=== PATIENT | female | born 1955 | race Caucasian/White ===

== ENCOUNTER 2016-10-21 11:54 | Inpatient (IN) | payer OTHER ==
[~2016-10-21] VITALS: Ht 165.1 cm; Wt 80.3 kg
--- NOTE | 2016-10-21 11:55 | NUR ---
PT W/C TO ED LOBBY BY FAMILY REPORTING SHE FAINTED, PT APPEARS FLACCID IN W/C, USED AMMONIA INHALANT WITH LITTLE RESPONSE, TRIAGED AND MOVED TO T1
--- NOTE | 2016-10-21 11:59 | NUR ---
PT TO ROOM T1 VIA WC, PT APPEARS LETHARGIC BUT IS ABLE TO STAND WITH ASSISTANCE ONTO GURNEY.
--- NOTE | 2016-10-21 12:02 | NUR ---
DR MCKNIGHT AT BEDSIDE FOR MD [id number].
--- NOTE | 2016-10-21 12:02 | NUR ---
EKG IN PROGRESS BY TONY HAYDEN.
--- NOTE | 2016-10-21 12:23 | NUR ---
PT NOTED TO BE MORE VERBAL IN COMPARISION TO WHEN PT 1ST ARRIVED TO . PT ABLE TO STATE FIRST & LAST NAME WITH CLEAR SPEECH AND NO DIFFICULTY. PT AAOX4.
--- NOTE | 2016-10-21 12:27 | NUR ---
REVENUE CYCLE ANALYST AT BEDSIDE.
--- NOTE | 2016-10-21 12:28 | NUR ---
PT GIVEN MED PER DR MCKNIGHT ORDERS. PT EDUCATED ON MEDS AND VERBALIZED UNDERSTANDING OF TEACHING. PT DENIES ANY ALLERGIES TO MEDS. PT IN BED WITH HOB @ 90 DEGREES FOR PO MED. NO DIFFICULTY SWALLOWING NOTED.
--- NOTE | 2016-10-21 12:29 | NUR ---
PT PICKED UP BY CT FOR TESTING VIA RBRUNO. NO DISTRESS NOTED AT THIS TIME.
--- NOTE | 2016-10-21 12:30 | NUR ---
PT INFORMED ABOUT NEED FOR URINE SAMPLE. PT STATES WILL PROVIDE SAMPLE SARAH.
--- NOTE | 2016-10-21 12:37 | NUR ---
PT BROUGHT BACK TO VIA GURENE FROM CT. NO DISTRESS NOTED AT THIS TIME
[2016-10-21 12:59] LABS: BASOPHIL % 0.3 % (0-2); PLATELET COUNT 440 x10^3mcL (130-400); RED CELL DISTRIBUTION WIDTH 13.3 % (11.5-14.5)
[2016-10-21 13:15] LABS: CALCIUM 9.4 mg/dL (8.5-10.1); CARBON DIOXIDE 28.2 mmol/L (21-32); CHLORIDE SERUM 107 mmol/L (98-107); CREATININE SERUM 0.7 mg/dL (0.6-1.0); GFR1 > 60 mL/min; GLUCOSE SERUM 103 mg/dL (74-106); POTASSIUM SERUM 3.5 mmol/L (3.5-5.1); SODIUM SERUM 143 mmol/L (136-145)
[2016-10-21 13:26] LABS: ALBUMIN 4.1 g/dL (3.4-5.0); ALKALINE PHOSPHATASE 120 U/L (46-116); ALT/SGPT 42 U/L (14-59); AST/SGOT 23 U/L (15-37); BILIRUBIN TOTAL 0.32 mg/dL (0.20-1.00); T4(THYROXINE) 8.5 ug/dL (4.7-13.3)
[2016-10-21 13:29] LABS: CHOLESTEROL 264 mg/dL (<200); TOTAL PROTEIN, SERUM 8.5 g/dL (6.4-8.2)
[2016-10-21 13:45] LABS: AMPHETAMINE QUAL UR NONE DETECTED (NEG <=1000)
--- NOTE | 2016-10-21 13:53 | NUR ---
PT AMBULATED WITH SLOW STEADY GAIT, PT REPORTS FEELING DIZZY UPON RETURNING TO ROOM AND PTS FACE APPEARS SLIGHTLY PALE. PT PLACED BACK ON CM. DR MCKNIGHT AWARE. PTS DAUGHTER AT BEDSIDE WITH PT.
--- NOTE | 2016-10-21 14:05 | NUR ---
LUNCH BREAK REPORT GIVEN TO MARIO MOORE TO CONTINUE CARE.
--- NOTE | 2016-10-21 14:45 | NUR ---
PT IN BED WITH HOB @ 45 DEGREES. PT SLEEPING BUT EASILY AROUSABLE. PT STATES "FEELING BETTER". NO DISTRESS NOTED AT THIS TIME. CALL LIGHT PLACED WITHIN REACH. COMFORT MEASURES IN PLACE.
--- NOTE | 2016-10-21 16:09 | NUR ---
ADMISSION REPORT GIVEN TO MARIO LUNA AT EXT [id number] TO CONTINUE CARE.
--- NOTE | 2016-10-21 16:14 | NUR ---
PT MEDICATED WITH ASA PO PER ORDERS.
--- NOTE | 2016-10-21 16:23 | NUR ---
RECEIVED PT FROM ED [facility]IA [employer] [facility], CAME IN DUE TO SYNCOPE X2 EPISODES. AAOX4. NO C/O MILD DIZZINESS. SPEECH IS CLEAR. NO FACIAL DROOP. HAND TUBE FILLER ARE EQUAL. NO SOB NOTED. DENIES CHEST PAIN/PRESSURE, NSR ON THE MONITOR. C/O MILD NAUSEA. DENIES ABDOMINAL PAIN. FAMILY AT BEDSIDE. SIDE RAILS UPX2. CALL LIGHT ON REACH. ENDORSED
[2016-10-21 16:27] VITALS: BP 147/70
[2016-10-21 16:37] VITALS: BP 147/70
[2016-10-21 16:40] LABS: UA SPECIFIC GRAVITY <=1.005 (1.005-1.035); microscopic required? YES; urine erythrocyte 1+ (NEGATIVE)
[2016-10-21 16:43] VITALS: Ht 165.1 cm; Wt 80.3 kg
--- NOTE | 2016-10-21 16:49 | NUR ---
RESUME CARE OF PATIENT. NO DISTRESS NOTED, DENIES PAIN. REPOST SOME DIZZINESS. MINIMAL ASSIST TO BATHROOM AND BACK IN BED, TOLERATED WELL
[2016-10-21 17:02] LABS: T3 TOTAL 1.17 ng/mL
[2016-10-21 17:09] LABS: FREE T4 0.86 ng/dL (0.76-1.46); FREE THYROXINE INDEX 2.7 ug/dL (1.4-4.5); T4(THYROXINE) 8.5 ug/dL (4.7-13.3)
--- NOTE | 2016-10-21 18:40 | NUR ---
FAMILY AT BEDSIDE. TOLERATED DINNER WELL, REPORTS NO NAUSEA AND SLIGHT DIZZINESS. NO DISTRESS, NOTED WILL ENDORSE TO NIGHT NURSE.
--- NOTE | 2016-10-21 19:05 | NUR ---
NURSING CO-SIGN THE DOCUMENTATION ENTERED BY THE RN CHAUNCEY HAS BEEN REVIEWED. REVIEWED/CO-SIGNED BY: Bette Fragoso DOCUMENTATION DONE BY:CHERYL SIMMONS
--- NOTE | 2016-10-21 19:59 | NUR ---
AAO X 4. SPEECH CLEAR AND APPROPRIATE. STATED HAVING SLIGHT DIZZINESS. ASSISTED TO RESTROOM BY FARRAH REA FOR SAFETY. GAIT STEADY. BREATHING EVEN AND UNLABORED ON ROOM AIR. IVF OF NS AT 140ML/HR.
--- NOTE | 2016-10-21 22:57 | NUR ---
EYES CLOSED, BREATHING EVEN AND UNLABORED ON ROOM AIR. CALL LIGHT WITHIN EASY REACH.
[2016-10-22 05:28] VITALS: BP 115/60
--- NOTE | 2016-10-22 06:56 | NUR ---
AWAKE AND ALERT, IN NO ACUTE DISTRESS DURING SHIFT.
--- NOTE | 2016-10-22 07:10 | NUR ---
AAO X4,DENIES ANY PAIN/DISCOMFORT.LUNGS CLEAR.ON SR ON THE MONITOR.IVF NS GOING AT 140 ML/HR INFUSING WELL.CALL LIGHT WITHIN REACH.INSTRUCTED TO CALL FOR ANY PAIN/DISCOMFORT.WILL CONTINUE TO MONITOR PT.
--- NOTE | 2016-10-22 07:10 | NUR ---
DENIES HAVING DIZZINESS. ENDORSED TO NURSE FAISAL
[2016-10-22 07:17] LABS: CALCIUM 8.2 mg/dL (8.5-10.1); CARBON DIOXIDE 26.9 mmol/L (21-32); CHLORIDE SERUM 110 mmol/L (98-107); CREATININE SERUM 0.7 mg/dL (0.6-1.0); GFR1 > 60 mL/min; GLUCOSE SERUM 101 mg/dL (74-106); MAGNESIUM 2.2 mg/dL (1.8-2.4); POTASSIUM SERUM 3.8 mmol/L (3.5-5.1); SODIUM SERUM 140 mmol/L (136-145)
[2016-10-22 07:24] LABS: BASOPHIL % 0.6 % (0-2); PLATELET COUNT 370 x10^3mcL (130-400); RED CELL DISTRIBUTION WIDTH 13.5 % (11.5-14.5)
--- NOTE | 2016-10-22 08:19 | NUR ---
AND MEDICINE TEAM AT BEDSIDE.INFORMED PT ABOUT THE PLAN OF CARE. PT WILL STAY TODAY.
[2016-10-22 09:46] VITALS: BP 120/54
[2016-10-22 12:20] VITALS: BP 122/61
--- NOTE | 2016-10-22 15:00 | NUR ---
NO C/O DIZZINESS.PT COMFORTABLE.
[2016-10-22 16:29] VITALS: BP 108/57
--- NOTE | 2016-10-22 18:14 | NUR ---
NO SIGNIFICANT CHANGE NOTED.WILL ENDORSE TO NEXT SHIFT.
--- NOTE | 2016-10-22 19:47 | NUR ---
PT. AWAKE, ALERT, ORIENTED X4. DENIES HEADACHE BUT C/O DIZZINESS. BREATH SOUNDS CLEAR THROUGHOUT LUNG FIELD, RESP. EVEN, UNLABORED. NO SOB NOTED. NSR ON MONITOR, DENIES CHESTPAIN OR DISCOMFORT. NO EDEMA NOTED TO EXTREMITIES. PEDAL PULSES STRONG TERI. ABD. SOFT AND ROUND, BOWEL SOUNDS ACTIVE. DENIES ABD. PAIN, DENIES NAUSEA. IVF INFUSING WELL TO RAC, 140CC/HR. FAMILY AT BEDSIDE. CALL LIGHT WITHIN REACH.
--- NOTE | 2016-10-22 20:00 | NUR ---
PT. C/O DIZZINESS, INTERMITTENT, SINCE EARLIER TODAY. PRN MECLIZINE, PO GIVEN ORDERED. WILL MONITOR.
[2016-10-22 21:44] VITALS: BP 117/57
--- NOTE | 2016-10-22 22:16 | NUR ---
PT. STATED THAT SHE FEELS A LOT BETTER. DENIES ANY DIZZINESS PRESENTLY. CALL LIGHT REMAINS WITHIN REACH.
[2016-10-23 05:54] VITALS: BP 99/49
--- NOTE | 2016-10-23 05:59 | NUR ---
PT. SLEPT THROUGHOUT NIGHT. NO COMPLAINTS THIS TIME. DENIES ANY DIZZINESS. IVF INFUSING WELL, SITE WNL. CALL LIGHT REMAINS WITHIN REACH.
--- NOTE | 2016-10-23 07:30 | NUR ---
RECEIVED PT IN BED A/A/OX4 DENIES WRIGHT OR DIZZINESS AT THIS TIME. RESP EVEN AND UNLABORED WITH CLEAR BS BILAT. DENIES ANY SOB/CP/PRESSURE AT THIS TIME. NO FURTHER EPISODES OF SYNCOPE REPORTED. UP WITH SUPERVISION FOR SAFETY. ABD SOFT, NONTENDER WITH ACTIVE BS X4. DENIES ANY N/V AT THIS TIME. CALL LIGHT IN REACH NEEDS ATTENDED TO.
[2016-10-23 09:02] VITALS: BP 127/66
--- NOTE | 2016-10-23 12:50 | NUR ---
PT STATED SHE ONLY HAD TRANPORTATION HOME UNTIL 3PM SINCE PT'S DAUGHTER WILL GO TO WORK. DR. CHAVEZ MADE AWARE.
[2016-10-23] MEDS ORDERED: MECLIZINE HYD12.5 MG PO (13:48)
[2016-10-23] MEDS ORDERED: LIPI10 PO (13:51)
[2016-10-23] MEDS ORDERED: ZES10 PO (13:51)
[2016-10-23 13:58] VITALS: BP 127/66
--- NOTE | 2016-10-23 14:23 | NUR ---
PT/ PROVIDED WITH D/C HOME ISNTRUCTIONS. GIVEN MEDICATION EDCUATION. GIVEN VERBAL INSTRUCTIONS ON DIABETES AND D/C NURSE GAVE FLIER FOR DIABETES CLASS. PT MADE AWARE OF F/U APPT WITH PCP. PT VERBALIZED UNDERSTANDING OF INSTRUCTIONS. TELE AND IV D/C'D PT AMBULATED TO LOBBY WITH ALL PERSONAL BELONGINGS IN HAND FREE OF ANY APPARENT DISTRESS.
== END 2016-10-23 14:23 | disposition home or self-care (01) | DRG 48 ==
LOC: ED 11:54 → DU 15:37
PROVIDERS: Emergency Medicine; ADMIT Family Medicine
DX: G90.9 Disorder of the autonomic nervous system, unspecified (principal); E87.8 Other disorders of electrolyte and fluid balance, not elsewhere classified; R73.03 Prediabetes; E83.51 Hypocalcemia; I10 Essential (primary) hypertension; E78.5 Hyperlipidemia, unspecified; R74.0 Nonspecific elevation of levels of transaminase and lactic acid dehydrogenase [LDH]
CPT/HCPCS: 82962; 83880; 84439; G0480; J0360; J2405; J7030; J8597; Q0092

== ENCOUNTER 2017-09-12 11:52 | Emergency (ER) | payer OTHER ==
[~2017-09-12] VITALS: Ht 165.1 cm; Wt 79.4 kg
[~2017-09-12 11:52] MED LIST: LIPI10 PO; MECLIZINE HYD12.5 MG PO; ZES10 PO
[2017-09-12 12:59] LABS: BASOPHIL % 0.2 % (0-2); PLATELET COUNT 380 x10^3mcL (130-400); RED CELL DISTRIBUTION WIDTH 13.3 % (11.5-14.5)
[2017-09-12 13:11] LABS: CALCIUM 8.4 mg/dL (8.5-10.1); CARBON DIOXIDE 30.3 mmol/L (21-32); CHLORIDE SERUM 104 mmol/L (98-107); CREATININE SERUM 0.7 mg/dL (0.6-1.0); GFR1 > 60 mL/min; GLUCOSE SERUM 118 mg/dL (74-106); POTASSIUM SERUM 3.9 mmol/L (3.5-5.1); SODIUM SERUM 141 mmol/L (136-145)
[2017-09-12 13:15] LABS: ALBUMIN 3.6 g/dL (3.4-5.0); ALKALINE PHOSPHATASE 122 U/L (46-116); ALT/SGPT 29 U/L (14-59); AST/SGOT 16 U/L (15-37); BILIRUBIN TOTAL 0.3 mg/dL (0.20-1.00); CHOLESTEROL 200 mg/dL (<200); PHOSPHOROUS 2.7 mg/dL (2.5-4.9); TOTAL PROTEIN, SERUM 7.4 g/dL (6.4-8.2); URIC ACID 4.8 mg/dL (2.6-6.0)
[2017-09-12 13:16] LABS: HDL CHOLESTEROL 64 mg/dL (40-60)
[2017-09-12 14:02] VITALS: BP 121/72
== END 2017-09-12 14:10 | disposition home or self-care (01) ==
LOC: ED 11:52
PROVIDERS: Emergency Medicine
DX: M75.101 Unspecified rotator cuff tear or rupture of right shoulder, not specified as traumatic (principal); R55 Syncope and collapse; I10 Essential (primary) hypertension
CPT/HCPCS: 36415; 83880; J1885

== ENCOUNTER 2019-03-22 21:53 | Emergency (ER) | payer OTHER ==
[~2019-03-22] VITALS: Ht 165.1 cm; Wt 72.6 kg
[2019-03-22 21:58] VITALS: Ht 165.1 cm; Wt 72.6 kg
[2019-03-22 23:31] LABS: BASOPHIL % 0.4 % (0-2); RED CELL DISTRIBUTION WIDTH 12.9 % (11.5-14.5)
[2019-03-22 23:32] LABS: PLATELET COUNT 411 x10^3mcL (130-400)
[2019-03-22 23:43] LABS: CALCIUM 9.7 mg/dL (8.5-10.1); CARBON DIOXIDE 26.5 mmol/L (21-32); CHLORIDE SERUM 105 mmol/L (98-107); CREATININE SERUM 0.7 mg/dL (0.6-1.0); GFR1 > 60 mL/min; GLUCOSE SERUM 122 mg/dL (74-106); POTASSIUM SERUM 3.3 mmol/L (3.5-5.1); SODIUM SERUM 141 mmol/L (136-145)
[2019-03-22 23:48] LABS: ALBUMIN 3.9 g/dL (3.4-5.0); ALKALINE PHOSPHATASE 128 U/L (46-116); ALT/SGPT 32 U/L (14-59); AST/SGOT 16 U/L (15-37); BILIRUBIN TOTAL 0.3 mg/dL (0.20-1.00)
[2019-03-23 03:05] VITALS: BP 148/45
== END 2019-03-23 03:05 | disposition home or self-care (01) ==
LOC: ED 21:53
PROVIDERS: Specialist
DX: R55 Syncope and collapse (principal); R42 Dizziness and giddiness; I10 Essential (primary) hypertension
CPT/HCPCS: 36415; 82962; Q0092